=== PATIENT | female | born 1955 | race Two or more races ===

== ENCOUNTER 2017-06-04 11:00 | Inpatient (IN) | payer OTHER ==
[~2017-06-04] VITALS: Ht 175.3 cm; Wt 86.2 kg
[~2017-06-04 11:00] MED LIST: AMOX1TAB5 PO; CEFDINIR300 MG PO; DULCOLAX5 MG PO; INTESTINEX1 CA1 PO; OXYC1TAB9 PO
[2017-06-16] MEDS ORDERED: NEURONTIN300 MG PO (05:12)
[2017-06-16] MEDS ORDERED: PERCOCET 5-3251 EACH PO (05:12)
[2017-06-16] MEDS ORDERED: MIRALAX17 GM PO (05:12)
== END 2017-06-16 18:18 | disposition home or self-care (01) | DRG 336 ==
LOC: O/R 06-12 05:45 → SURH 06-12 10:15 → SURG 06-12 13:05
PROVIDERS: Surgery
PROC: 0WUF0JZ Supplement Abdominal Wall with Synthetic Substitute, Open Approach (ICD-10-PCS; 2017-06-12)
PROC: 0WJF4ZZ Inspection of Abdominal Wall, Percutaneous Endoscopic Approach (ICD-10-PCS; 2017-06-12)
PROC: 0JX80ZZ Transfer Abdomen Subcutaneous Tissue and Fascia, Open Approach (ICD-10-PCS; 2017-06-12)
PROC: 0WPF0JZ Removal of Synthetic Substitute from Abdominal Wall, Open Approach (ICD-10-PCS; 2017-06-12)
PROC: 0WQF0ZZ Repair Abdominal Wall, Open Approach (ICD-10-PCS; 2017-06-12)
PROC: 0DN80ZZ Release Small Intestine, Open Approach (ICD-10-PCS; principal; 2017-06-12 10:15)
DX: K43.0 Incisional hernia with obstruction, without gangrene (principal); J95.89 Other postprocedural complications and disorders of respiratory system, not elsewhere classified; J98.11 Atelectasis; K56.0 Paralytic ileus; K91.89 Other postprocedural complications and disorders of digestive system; K42.0 Umbilical hernia with obstruction, without gangrene; K66.0 Peritoneal adhesions (postprocedural) (postinfection)

== ENCOUNTER 2017-07-23 09:15 | Inpatient (IN) | payer OTHER ==
[~2017-07-23] VITALS: Ht 175.3 cm; Wt 85.3 kg
[~2017-07-23 09:15] MED LIST changes: +MIRALAX17 GM PO; +NEURONTIN300 MG PO; +PERCOCET 5-3251 EACH PO
[2017-07-23] MEDS ORDERED: HYZAAR 100-251 EACH (09:36)
[2017-07-23] MEDS ORDERED: TOPROL XL50 MG (09:36)
[2017-07-23] MEDS ORDERED: NORVASC5 MG (09:36)
[2017-07-31] MEDS ORDERED: INTESTINEX680 M1 PO (09:02)
[2017-07-31] MEDS ORDERED: LEVAQUIN750 MG PO (09:02)
[2017-07-31] MEDS ORDERED: FLAGYL500MG PO (09:02)
== END 2017-07-31 12:33 | disposition home or self-care (01) | DRG 857 ==
LOC: ER 09:15 → MEDI 11:53 → SEC-K 11:53 → MEDI 15:59
PROVIDERS: Surgery
PROC: 0W9F0ZZ Drainage of Abdominal Wall, Open Approach (ICD-10-PCS; 2017-07-24)
PROC: 0JB80ZZ Excision of Abdomen Subcutaneous Tissue and Fascia, Open Approach (ICD-10-PCS; principal; 2017-07-24 13:45)
DX: T81.4XXA Infection following a procedure, initial encounter (principal); N39.0 Urinary tract infection, site not specified; J98.11 Atelectasis; K56.699 Other intestinal obstruction unspecified as to partial versus complete obstruction; K42.9 Umbilical hernia without obstruction or gangrene; K43.2 Incisional hernia without obstruction or gangrene; E11.9 Type 2 diabetes mellitus without complications; K29.60 Other gastritis without bleeding; K29.80 Duodenitis without bleeding; K44.9 Diaphragmatic hernia without obstruction or gangrene; D12.2 Benign neoplasm of ascending colon; D12.4 Benign neoplasm of descending colon; Y92.89 Other specified places as the place of occurrence of the external cause; Y83.8 Other surgical procedures as the cause of abnormal reaction of the patient, or of later complication, without mention of misadventure at the time of the procedure

== ENCOUNTER 2018-07-09 06:46 | Day surgery (SDC) | payer OTHER ==
[~2018-07-09 06:46] MED LIST changes: +FLAGYL500MG PO; +HYZAAR 100-251 EACH; +INTESTINEX680 M1 PO; +LEVAQUIN750 MG PO; +NORVASC5 MG; +TOPROL XL50 MG
== END 2018-07-09 11:40 | disposition home or self-care (01) ==
LOC: AMB-ENDOS 06:46
DX: K63.5 Polyp of colon (principal); K63.89 Other specified diseases of intestine